=== PATIENT | female | born 1965 | race Caucasian/White ===

== ENCOUNTER → 2017-09-19 | Outpatient (CLI) | payer OTHER ==
[2017-09-20 09:31] LABS: Candida species (DNA Probe) Negative (NEGATIVE); G. vaginalis (DNA Probe) Negative (NEGATIVE); T. vaginalis (DNA Probe) Negative (NEGATIVE)
== END | disposition home or self-care (01) ==
LOC: LAB 16:55 → LAB SHORT 16:55
PROVIDERS: Obstetrics & Gynecology
DX: Z11.3 Encounter for screening for infections with a predominantly sexual mode of transmission (principal); N76.0 Acute vaginitis
CPT/HCPCS: 87480; 87510; 87529; 87660

== ENCOUNTER 2017-12-14 08:11 | Day surgery (SDC) | payer OTHER ==
[~2017-12-14] VITALS: Ht 162.6 cm; Wt 71.9 kg
[~2017-12-14 08:11] MED LIST: AMPDEX10CR; CARTIVISC TABL1 EACH; CLOBETTC; CYCL10; DICL75ER; ESTR.75; Estrace Vagin42.5 GM; FLONASE ALLERG9.9 ML; GLUC500; Hair, Skin & N1 EACH; LORA1SY; MELO7.5; TUMERSAID TABL1 EACH
== END 2017-12-14 10:38 | disposition home or self-care (01) ==
LOC: ORSCSDS 08:11
PROVIDERS: Internal Medicine Gastroenterology
PROC: 0DJD8ZZ Inspection of Lower Intestinal Tract, Via Natural or Artificial Opening Endoscopic (ICD-10-PCS; principal; 2017-12-14 09:30)
DX: Z12.11 Encounter for screening for malignant neoplasm of colon (principal); Z79.899 Other long term (current) drug therapy
CPT/HCPCS: J7120

== ENCOUNTER 2018-07-01 11:33 | Inpatient (IN) | payer OTHER ==
[~2018-07-01] VITALS: Ht 162.6 cm; Wt 74.8 kg
[~2018-07-01 11:33] MED LIST changes: +CARTIVISC TABL1 EACH PO; +CLARITIN PO; +CYCL10 PO; +DIM PO; +ESTR2 PO; +Estrace Vagin42.5 GM VAG; +Flonase 0.05% N16 GM; +GLUCOSAMINE-CH1 EA17 PO; +MELO7.5 PO; +NYQUIL PO; +THERA1 EACH PO; +TUMERIC PO; +VITAMIN D W/CALCIUM PO
--- NOTE | 2018-07-02 06:52 | NUR ---
History, Chart, Medications and Allergies reviewed before start of procedure. Patient confirms NPO status and agrees with scheduled surgery. Lungs clear T/O to Auscultation. Pre-Op teaching done. Pt verbalizes understanding. Patient reports completing Chlorhexadine shower X2 prior to admission to hospital.
--- NOTE | 2018-07-02 07:26 | NUR ---
RESIDENT CARE DIRECTOR REPORT COMPLETED AT BEDSIDE.
--- NOTE | 2018-07-02 08:27 | NUR ---
07/02/18 0827 Poonam Diaz PT VOIDED PRIOR TO COMING TO THE OR
--- NOTE | 2018-07-02 11:31 | NUR ---
PT ARRIVED TO ROOM AT APPROXIMATELY 1120. PT ALERT AND ORIENTED UPON ARRIVAL TO THE ROOM. PT RATES PAIN AT 5/10. PT DENIES NAUSEA. VSS. FAMILY AT THE BEDSIDE. WILL CONTINUE TO MONITOR.
--- NOTE | 2018-07-02 19:25 | NUR ---
SHIFT SUMMARY PAIN HAS BEEN MANAGED WITH PO PAIN MEDICATION THIS SHIFT. PT WAS ABLE TO WORK WITH THERAPY. SHE IS A 1 PERSON ASSIST WHEN OOB. PT TOLERATING PO WELL. BP SLIGHTLY DECREASED, PT HAS BEEN ASYMPTOMATIC. REPORT GIVEN TO INGA LO.
--- NOTE | 2018-07-03 03:15 | NUR ---
PT'S BP WAS 83/47 PER DINAMAP. MANUAL WAS 84/56. WILL RECHECK.
[2018-07-03 04:59] LABS: BASOPHILS ABSOLUTE AUTO 0.02 K/mm3 (0.00-0.23); BASOPHILS PERCENT AUTO 0 % (0-2); EOSINOPHILS PERCENT AUTO 0 % (0-6); Hematocrit 31.9 % (33.0-51.0); Hemoglobin 10.3 g/dL (11.5-16.0); IMMATURE GRAN ABSOLUTE AUTO 0.06 K/mm3 (0.00-0.10); IMMATURE GRAN PERCENT AUTO 0 % (0-1); LYMPHOCYTES ABSOLUTE AUTO 1.81 K/mm3 (0.84-5.20); LYMPHOCYTES PERCENT AUTO 13 % (21-46); MONOCYTES ABSOLUTE AUTO 1.01 K/mm3 (0.16-1.47); MONOCYTES PERCENT AUTO 7 % (4-13); Mean Corpuscular HGB 29.7 pg (26.0-34.0); Mean Corpuscular HGB Conc 32.3 g/dL (31.5-36.5); Mean Corpuscular Volume 92 fL (80-100); Mean Platelet Volume 9.9 fL (9.1-12.4); NEUTROPHILS ABSOLUTE AUTO 11.43 K/mm3 (1.96-9.15); NEUTROPHILS PERCENT AUTO 80 % (41-73); Platelet Count 310 K/mm3 (150-400); RDW Coefficient Variation 13.3 % (11.7-14.2); RDW Standard Deviation 44.6 fL (35.1-46.3); Red Blood Cell Count 3.47 M/mm3 (3.80-5.20); White Blood Cell Count 14.33 K/mm3 (4.00-11.30)
[2018-07-03 05:13] LABS: Anion Gap 7 mmol/L (6-16); Blood Urea Nitrogen 11 mg/dL (8-24); Bun/Creatinine Ratio 18.4 (12.0-20.0); CO2, Blood 25 mmol/L (21-32); Calcium, Blood 8.4 mg/dL (8.5-10.1); Chloride, Blood 109 mmol/L (98-108); Glomerular Filtration Rate >60 (60-); Glucose, Blood 110 mg/dL (70-99); Potassium, Blood 4.3 mmol/L (3.5-5.5); Sodium, Blood 141 mmol/L (136-145)
--- NOTE | 2018-07-03 05:33 | NUR ---
LYING IN SEMI FOWLERS WITH EYES CLOSED. HAS ONLY C/O PAIN ONCE THIS SHIFT. AMBULATED IN DIAZ X1 THIS SHIFT. DENEIS FURTHER NEEDS OR WANTS AT THIS TIME. SAFETY MEASURES IN PLACE. WILL GIVE HAND OFF TO ONCOMING SHIFT USING SBAR.
[2018-07-03] MEDS ORDERED: Aspirin EC81 MG PO (10:01)
[2018-07-03] MEDS ORDERED: Percocet 5-3251 EACH PO (10:02)
--- NOTE | 2018-07-03 10:46 | NUR ---
DISCHARGE PT DISCHARGED HOME FROM UNIT AT APROX 1045. PT AND DAUGHTER GIVEN WRITTEN AND VERBAL DISCHARGE INSTRUCTIONS AND VERBALIZED UNDERSTANDING OF THESE INSTRUCTIONS. WRITTEN RX GIVEN TO PT FOR PAIN MEDICATION, COPY IN CHART. IV REMOVED, PT TOLERATED WELL.
== END 2018-07-03 10:39 | disposition home or self-care (01) | DRG 470 ==
LOC: SURS 07-02 06:07 → PRE IP 07-02 07:30 → SURS 07-02 11:18
PROVIDERS: ADMIT Orthopaedic Surgery
PROC: 0SR904A Replacement of Right Hip Joint with Ceramic on Polyethylene Synthetic Substitute, Uncemented, Open Approach (ICD-10-PCS; principal; 2018-07-02 07:30)
DX: M16.11 Unilateral primary osteoarthritis, right hip (principal); Z79.51 Long term (current) use of inhaled steroids; Z79.899 Other long term (current) drug therapy
CPT/HCPCS: 36415; 72170; 80048; 85025; 86850; 86900; 86901; 97110; 97116; 97162; 97530; J0171; J0690; J0735; J1100; J1885; J2250; J2370; J2405; J2795; J3010; J7120

== ENCOUNTER → 2019-02-24 | Outpatient (CLI) | payer OTHER ==
[~2019-02-24] MED LIST changes: +Aspirin EC81 MG PO; +Percocet 5-3251 EACH PO
[2019-02-26 13:07] LABS: HPV 16 Negative (Negative); HPV 18 Negative (Negative); HPV OTHER HR TYPES Negative (Negative)
== END | disposition home or self-care (01) ==
LOC: LAB SHORT 18:17 → LAB 18:17
PROVIDERS: Nurse Practitioner Women's Health
DX: Z12.72 Encounter for screening for malignant neoplasm of vagina (principal); Z91.89 Other specified personal risk factors, not elsewhere classified
CPT/HCPCS: 87624; G0123

== ENCOUNTER 2021-08-16 07:01 | Day surgery (SDC) | payer OTHER ==
[~2021-08-16] VITALS: Ht 162.6 cm; Wt 79.6 kg
[~2021-08-16 07:01] MED LIST changes: +DICL75ER PO; +ESTRADIOL1 EAC2 TOP; +TIZA4 PO; +UNISOM PO
--- NOTE | 2021-08-16 08:14 | NUR ---
PT ADMITTED TO [facility], AGREES WITH PLANNED SURGERY. LUNG SOUNDS CLEAR.
--- NOTE | 2021-08-16 12:03 | NUR ---
08/16/21 1203 Taylor Becker PRIOR TO DRAPPING PATIENT & PREPPING, NOTED SCATTERED BRUSING ON INNER SIDE OF RIGHT THIGH TOWARDS GROIN. NOTIFIED.
[2021-08-16] MEDS ORDERED: ASPI81CH PO (16:35)
[2021-08-16] MEDS ORDERED: Percocet 5-3251 EACH PO (16:36)
--- NOTE | 2021-08-16 18:13 | NUR ---
SHIFT SUMMARY POD0 L BARBARA, A/OX4, VSS, TOLERATING PO, AMBULATING WELL, PAIN WELL MANAGED PER EMAR. DISCHARGE PAPERWORK COMPLETED AND JUST NEEDS FINALIZED IN THE MORNING AFTER PT CLEARS HER TO GO HOME. NO ACUTE EVENTS THIS SHIFT. CALL LIGHT IN REACH, WILL CTM AND REPORT TO ONCOMING NOC RN.
--- NOTE | 2021-08-17 04:26 | NUR ---
SHIFT SUMMARY POD1 LEFT BARBARA. AQUACEL DRESSING TO HIP REMAINS CDI WITH POLAR PACK IN PLACE. UP WITH 1 SBA USING FWW + GB AND WBAT. 1 OXYCODONE/TYLENOL/TORADOL FOR PAIN MANAGEMENT. USES CALL LIGHT APPROPRIATELY. PLAN FOR PT TO DISCHARGE HOME TODAY AFTER CLEARING PT/OT.
[2021-08-17 05:12] LABS: BASOPHILS ABSOLUTE AUTO 0.01 K/mm3 (0.00-0.23); BASOPHILS PERCENT AUTO 0 % (0-2); EOSINOPHILS PERCENT AUTO 0 % (0-6); Hemoglobin 10.5 g/dL (11.5-16.0); IMMATURE GRAN ABSOLUTE AUTO 0.06 K/mm3 (0.00-0.10); IMMATURE GRAN PERCENT AUTO 0 % (0-1); LYMPHOCYTES ABSOLUTE AUTO 1.28 K/mm3 (0.84-5.20); LYMPHOCYTES PERCENT AUTO 9 % (21-46); MONOCYTES ABSOLUTE AUTO 0.89 K/mm3 (0.16-1.47); MONOCYTES PERCENT AUTO 6 % (4-13); Mean Corpuscular HGB 29.8 pg (26.0-34.0); Mean Corpuscular HGB Conc 32.8 g/dL (31.5-36.5); Mean Corpuscular Volume 91 fL (80-100); Mean Platelet Volume 10.2 fL (9.1-12.4); NEUTROPHILS ABSOLUTE AUTO 12.57 K/mm3 (1.96-9.15); NEUTROPHILS PERCENT AUTO 85 % (41-73); Platelet Count 296 K/mm3 (150-400); RDW Coefficient Variation 13.2 % (11.7-14.2); RDW Standard Deviation 43.8 fL (35.1-46.3); Red Blood Cell Count 3.52 M/mm3 (3.80-5.20); White Blood Cell Count 14.81 K/mm3 (4.00-11.30)
[2021-08-17 05:42] LABS: Anion Gap 3 mmol/L (6-16); Blood Urea Nitrogen 12 mg/dL (8-24); Bun/Creatinine Ratio 17.2 (12.0-20.0); CO2, Blood 27 mmol/L (21-32); Calcium, Blood 8.8 mg/dL (8.5-10.1); Chloride, Blood 105 mmol/L (98-108); Glomerular Filtration Rate >60 (60-); Glucose, Blood 130 mg/dL (70-99); Potassium, Blood 4.1 mmol/L (3.5-5.5); Sodium, Blood 135 mmol/L (136-145)
--- NOTE | 2021-08-17 11:09 | NUR ---
DISCHARGE SUMMARY PT POD #1 FOR L TOTAL HIP. PT'S PAIN IS MANAGED BY ORAL PAIN MEDICATION AND SHE WAS CLEARED BY PHYSICAL THERAPY TO DISCHARGE. AQUACEL DRESSING IN PLACE AND CDI. WENT OVER DISCHARGE INSTRUCTIONS WITH THE PATIENT AND SHE VERBALIZED UNDERSTANDING. PT TO DC HOME WITH . HAS ALREADY PICKED UP THE PATIENT'S PAIN MEDICATIONS.
== END 2021-08-17 10:59 | disposition home or self-care (01) ==
LOC: ORSCMMR 07:01 → ORD 11:00 → ORSCMMR 11:00 → SURS 14:14 → ORSCMMR 08-17 10:59
PROVIDERS: Orthopaedic Surgery
PROC: 0SRB0JA Replacement of Left Hip Joint with Synthetic Substitute, Uncemented, Open Approach (ICD-10-PCS; principal; 2021-08-16 09:15)
DX: M16.12 Unilateral primary osteoarthritis, left hip (principal); Z96.641 Presence of right artificial hip joint; Z79.899 Other long term (current) drug therapy
CPT/HCPCS: 36415; 72170; 80048; 85025; 97110; 97116; 97161; A9270; C1713; C1776; J0171; J0690; J0735; J1100; J1885; J2250; J2405; J2704; J2795; J3010; J7120